=== PATIENT | female | born 1985 | race African-American/Black ===

== ENCOUNTER 2022-02-15 12:05 | Day surgery (SDC) | payer MEDICAID, MEDICARE, OTHER ==
[~2022-02-15] VITALS: Ht 170.2 cm; Wt 82.0 kg
[2022-02-15] MEDS ORDERED: SODIUM CHLORIDE 0.9% 1,000 ML IV ONE (12:30)
[2022-02-15] MEDS ORDERED: LEVETIRACETAM 500MG PREMIX 100 ML IV ONE (12:30)
[2022-02-15] MEDS ORDERED: MORPHINE SULFATE 4 MG/ML CPJ (NOT FOR IM USE) IV ONE ×2 (12:45→18:15)
[2022-02-15 13:02] LABS: BASOPHILS % 0.5 % (0.0-2.0); EOSINOPHILS % 2.5 % (0.0-5.0); HEMATOCRIT. 35.5 % (36.0-48.0); LYMPHOCYTES % 39.2 % (20.0-50.0); MEAN CORPUSCULAR HEMOGLOBIN 31.1 pg (28.0-32.0); MEAN CORPUSCULAR VOLUME 92.1 fL (81.0-99.0); MEAN PLATELET VOLUME 7.6 fl (7.4-10.4); MONOCYTES % 6.9 % (2.0-8.0); NEUTROPHILS % 50.9 % (40.0-76.0); PLATELET 240 x1000/uL (130-400); RED BLOOD CELL COUNT 3.85 mill/uL (4.2-5.4); RED CELL DISTRIBUTION WIDTH 12.8 % (11.6-14.6)
[2022-02-15 13:30] LABS: CHLORIDE 110 mEq/L (98-107)
[2022-02-15] MEDS ORDERED: PROPOFOL 200MG/20ML VIAL IV ONE ×2 (17:54→18:55)
[2022-02-15] MEDS ORDERED: MIDAZOLAM HCL 2 MG/2 ML VIAL ONE ×2 (17:55→18:47)
[2022-02-15] MEDS ORDERED: FENTANYL CITRATE/PF 50MCG/ML 2ML VIAL ONE (17:55)
[2022-02-15] MEDS ORDERED: LIDOCAINE HCL 1% 20ML VIAL (Pyxis) INJ ONE (17:55)
[2022-02-15] MEDS ORDERED: ONDANSETRON HCL 4MG/2ML INJ ONE (18:43)
[2022-02-15 19:00] LABS: ETHANOL BLOOD < 10 mg/dL
[2022-02-15] MEDS ORDERED: METHYLERGONOVINE MALEATE 0.2 MG/ML IM NR (19:08)
[2022-02-15 19:11] VITALS: BP 119/80
[2022-02-15 19:19] LABS: B-HCG QUANTITATIVE 1422 mIU/mL (<3)
[2022-02-15] MEDS ORDERED: METHYLERGONOVINE MALEATE 0.2 MG/ML ONE (19:21)
[2022-02-15] MEDS ORDERED: ONDANSETRON HCL 4MG/2ML INJ IV PRN (19:30)
[2022-02-15] MEDS ORDERED: MEPERIDINE HCL/PF 25MG/ML CPJ IV PRN (19:30)
[2022-02-15] MEDS ORDERED: HYDROMORPHONE HCL/PF 2MG/ML CPJ IV PRN (19:30)
[2022-02-15] MEDS ORDERED: METH PO (19:54)
[2022-02-15] MEDS ORDERED: IBUP-2029 MT (19:54)
== END 2022-02-15 22:40 | disposition home or self-care (01) ==
LOC: ER 14:30 → EDBEDREQ 18:37 → EDBEDREQTM 18:37 → OR 19:00 → CANBEDREQ 02-17 16:36
PROVIDERS: ATTEND Specialist
DX: O26.891 Other specified pregnancy related conditions, first trimester (principal); O03.4 Incomplete spontaneous abortion without complication; O99.011 Anemia complicating pregnancy, first trimester; D64.9 Anemia, unspecified; O99.341 Other mental disorders complicating pregnancy, first trimester; F32.A Depression, unspecified; F41.9 Anxiety disorder, unspecified; I49.8 Other specified cardiac arrhythmias; R56.9 Unspecified convulsions; R20.0 Anesthesia of skin; Z3A.09 9 weeks gestation of pregnancy; Z20.822 Contact with and (suspected) exposure to COVID-19
CPT/HCPCS: 36415; 59812; 70450; 76830; 76856; 80053; 80320; 82962; 84702; 85025; 86850; 86900; 86901; 87426; 88305; 93005; 96365; 96372; 96375; 96376; 99285; J1953; J2210; J2250; J2270; J2405; J2704; J3010; J3490; J7030; G0480